=== PATIENT | male | born 1970 | race Two or more races ===

== ENCOUNTER 2021-08-17 10:15 | Inpatient (IN) | payer OTHER ==
[~2021-08-17] VITALS: Ht 172.7 cm; Wt 99.8 kg
[2021-08-17] MEDS ORDERED: ENALAPRIL MALEA10 MG PO (14:41)
[2021-08-17] MEDS ORDERED: SYNTHROID175 MCG (14:41)
[2021-08-17] MEDS ORDERED: CYMBALTA30 MG PO (14:41)
[2021-08-17] MEDS ORDERED: AMBIEN10 MG PO (14:42)
[2021-08-17] MEDS ORDERED: PERCOCET 5-3251 EACH PO (14:43)
[2021-08-17] MEDS ORDERED: LITHIUM CARBON300 M1 PO (14:43)
[2021-08-23] MEDS ORDERED: MEDROLPACK PO (13:23)
[2021-08-23] MEDS ORDERED: NEURONTIN800 MG PO (13:23)
[2021-08-23] MEDS ORDERED: DIAZEPAM5 MG PO (13:23)
[2021-08-23] MEDS ORDERED: PERCOCET 5-3251 EACH PO (13:23)
[2021-08-23] MEDS ORDERED: AMOX-CLAV 875-1 EAC1 PO (13:23)
[2021-08-23] MEDS ORDERED: COLACE100 MG PO (13:23)
== END 2021-08-24 12:18 | disposition home or self-care (01) | DRG 455 ==
LOC: SURH 08-23 07:44 → O/R 08-23 07:44 → SURG 08-23 12:00 → SURH 08-23 18:59
PROVIDERS: ADMIT Orthopaedic Surgery Orthopaedic Surgery of the Spine; ATTEND Orthopaedic Surgery Orthopaedic Surgery of the Spine
PROC: 0SG10J1 Fusion of 2 or more Lumbar Vertebral Joints with Synthetic Substitute, Posterior Approach, Posterior Column, Open Approach (ICD-10-PCS; 2021-08-23)
PROC: 07DR0ZZ Extraction of Iliac Bone Marrow, Open Approach (ICD-10-PCS; 2021-08-23)
PROC: 0SG10A0 Fusion of 2 or more Lumbar Vertebral Joints with Interbody Fusion Device, Anterior Approach, Anterior Column, Open Approach (ICD-10-PCS; principal; 2021-08-23 17:15)
DX: M43.16 Spondylolisthesis, lumbar region (principal); M48.062 Spinal stenosis, lumbar region with neurogenic claudication; M51.36 Other intervertebral disc degeneration, lumbar region